=== PATIENT | male | born 2000 | race Caucasian/White ===

== ENCOUNTER 2022-08-11 20:16 | Emergency (ER) | payer BC, SELFPAY ==
[2022-08-11 20:31] VITALS: BP 127/61; PULSE 85; RESP 20; TEMP 38.2; O2SAT 95
[2022-08-11] MEDS: ACETAMINOPHEN 500 MG TABLET 1000 MG PO (20:42)
--- NOTE | 2022-08-11 20:43 | ED.URI ---
HPI - URI/Sore Throat General Chief Complaint: Headache Stated Complaint: sore throat Time Seen by Provider: 08/11/22 20:43 History of Present Illness HPI Narrative: 22-year-old male patient is here with complaints of sore throat and headache getting progressively worse for the last 3 days. Patient did take ibuprofen 600 mg prior to arrival here. He does not recall getting exposed to anybody with sore throat or flu-like symptoms. He denies any nasal congestion and or cough. He does use vape. The patient is otherwise in good health. He is up-to-date on COVID vaccination but has not taken flu vaccine. Related Data Allergies Allergy/AdvReac Type Severity Reaction Status Date / Time azithromycin Allergy Mild VOMITING Verified 07/02/16 19:08 cefaclor Allergy Mild RASH Verified 07/02/16 19:08 Review of Systems Review of Systems: All systems reviewed & are unremarkable except as noted in HPI and below Exam Narrative: Alert male patient who does not appear in any acute distress but does appear slightly ill. He is febrile with a temperature of 100.7? pulse rate of 85 and a blood pressure of 127/61. Respiratory rate is 20 and SpO2 is 95% on room air. HEENT: normocephalic. Pupils midsize equal and reactive to light. Ear canals are clear. Oral mucous membranes are pink and moist. Posterior pharyngeal wall is erythematous with no significant swelling or exudate. Uvula is midline and normal in size. Neck is void of any adenopathy. Breath sounds are clear bilaterally. Heart tones are regular. Skin is warm and dry and turgor is normal. Neurologic exam is grossly normal. Mood and affect are normal Course Course Emergency Course: patient was given dose of Tylenol 1 g here and will recheck his temperature. He did start breaking out in sweat after strep screen is positive. Flu COVID RSV are negative. The patient will be started on Augmentin the 1st dose will be given here tonight. He is cleared to be discharged home with a prescription for the same. Repeat temperature is 98.9? Vital Signs Vital signs: Vital Signs Temperature 38.2 C H 08/11/22 20:31 Pulse Rate 85 08/11/22 20:31 Respiratory Rate 20 08/11/22 20:31 Blood Pressure 127/61 08/11/22 20:31 Pulse Oximetry 95 02/17/23 20:31 Oxygen Delivery Room Air 08/11/22 20:31 Temperature 37.1 C 08/11/22 21:19 Pulse Rate 73 08/11/22 21:19 Respiratory Rate 20 08/11/22 21:19 Blood Pressure 126/63 08/11/22 21:19 Pulse Oximetry 95 08/11/22 21:19 Oxygen Delivery Room Air 08/11/22 21:19 MDM - URI/Sore Throat Differential Diagnosis Differential diagnosis: Likely upper respiratory infection, sinusitis, viral infection, influenza and pharyngitis Lab Data Labs: Lab Results 08/11/22 08/11/22 Range/Units 20:30 20:30 Influenza A (RT-PCR) Negative (Negative) Influenza B (RT-PCR) Negative (Negative) RSV (RT-PCR) Negative (Negative) SARS-CoV-2 RNA (RT-PCR) Negative (Negative) Group A Strep (PCR) Detected A (Negative) Discharge Plan Discharge Clinical Impression: Strep pharyngitis Patient Disposition: Home, Self-Care Condition: Stable Instructions: Antibiotic Form, Strep Throat (ED) Additional Instructions: Home with the family. Continue Tylenol and ibuprofen as needed for fever or any pain. Antibiotics as prescribed. Warm saltwater gargles frequently to alleviate sore throat. Follow-up with your doctor as needed. Prescriptions: New amoxicillin-pot clavulanate 875-125 mg tablet 1 tablet PO Q12H Qty: 20 0RF Follow-up/Referrals: UNKNOWN,DOCTOR [Primary Care Provider] - Stand Alone Forms: Work/School Release IP Time of Disposition: 21:26
[2022-08-11 20:56] LABS: Strep Group A RT-PCR DETECTED (Negative)
[2022-08-11 21:05] LABS: Influenza A QL RT-PCR Negative (Negative); Influenza B QL RT-PCR Negative (Negative); SARS-CoV-2 RNA PCR Negative (Negative)
[2022-08-11 21:06] LABS: RSV RNA, RT-PCR Negative (Negative)
[2022-08-11 21:19] VITALS: BP 126/63; PULSE 73; RESP 20; TEMP 37.1; O2SAT 95
[2022-08-11] MEDS: AMOXICILLIN/CLAVULANATE K 875-125 MG TAB 1 TABLET PO (21:26)
[2022-08-11] MEDS: predniSONE 20 MG TABLET PO (21:26)
== END 2022-08-11 21:36 | disposition home or self-care (01) ==
PROVIDERS: Emergency Provider Emergency Medicine
DX: J02.0 Streptococcal pharyngitis (principal); Z20.822 Contact with and (suspected) exposure to COVID-19
CPT/HCPCS: 87637; 87651; 99283; A9270; J7512